=== PATIENT | male | born 2000 ===

== ENCOUNTER 2018-10-11 19:44 | Day surgery (SDC) | payer OTHER ==
[~2018-10-11] VITALS: Ht 170.2 cm; Wt 67.6 kg
[2018-10-11 20:08] VITALS: BP 126/62; PULSE 71; TEMP 98
[2018-10-11] MEDS ORDERED: REMERON 15M15 MG/TA1 PO (20:57)
[2018-10-11] MEDS ORDERED: DESYREL DIVIDO300 MG PO (20:59)
[2018-10-12] VITALS (11 sets, daily range): BP systolic 98–118; BP diastolic 51–73; PULSE 65–83; TEMP 97.7–98.1
--- NOTE | 2018-10-12 01:22 | NUR ---
Patient to the unit via EMS at 1999. IV noted to left forearm. States pain is 5/10 to right side of his flank area. Orders received from Scottie. NPO at midnight. IVF started to left forearm. Reassessed pain to 3/10, and scheduled Tordol given. Patient resting with eyes closed in bed at this time. Educated when arrived about urinating in the urinal, so staff can strain his urine. Will continue to monitor.
--- NOTE | 2018-10-12 05:01 | NUR ---
Patient has rested well throughout the night. No complaints of pain noted. Will continue to monitor.
--- NOTE | 2018-10-12 06:45 | NUR ---
appears to be sleeping, bedside shift report received from JAIME Gregg
--- NOTE | 2018-10-12 06:59 | NUR ---
Report given to JAIME Aguilar.
--- NOTE | 2018-10-12 07:47 | NUR ---
awake and full assessment completed, see interventions for further info, consent signed, medicated with scheduled toradol for c/os pain 10/01, denies other needs
--- NOTE | 2018-10-12 09:20 | NUR ---
assisted him with getting ready for surgery and to surgery per bed, denies needs
--- NOTE | 2018-10-12 11:40 | NUR ---
remains in surgery
--- NOTE | 2018-10-12 12:15 | NUR ---
returned to room per bed from PACU, awake and alert, VS obtained and then assisted him up to bathroom and he voided qs bright red urine, then back to bed, IV infusing per gravity, provided water, asking about eating and will instructed after he has water and tolerates, verbalizes understanding
--- NOTE | 2018-10-12 12:30 | NUR ---
assisted up to bathroom again and was able to void
--- NOTE | 2018-10-12 12:45 | NUR ---
c/o pain and medicated with percocet 5mg 2 tabs, taking water and tolerates well, instructed on ordering regular food and verbalizes understanding
--- NOTE | 2018-10-12 13:30 | NUR ---
resting in bed, has ordered regular food, states is continue to have dull aching pain in left flank area
--- NOTE | 2018-10-12 13:31 | NUR ---
BLANCA met with the patient to discuss discharge plan. The patient lives in the [facility] on [address]. He reports independence with ADLs and does not use any DME. The patient receives primary care at the [facility] on [address] and he receives his medications at the [facility]. He reports no difficulties obtaining his meds. The patient plans to return home upon discharge. No additional needs at this time.
--- NOTE | 2018-10-12 14:00 | NUR ---
sitting up in bed and has had something to eat and tolerated well
--- NOTE | 2018-10-12 15:00 | NUR ---
states he feels like he is ready to go and his ride is on his way, IV to INT and will get up to bathroom independently and then get dressed
--- NOTE | 2018-10-12 15:25 | NUR ---
discharge instructions given to patient, verbalizes understanding
== END 2018-10-12 15:35 | disposition home or self-care (01) ==
LOC: SURG 19:44 → SDCO 19:44 → SURG 10-12 15:35
DX: R10.9 Unspecified abdominal pain (principal); Z87.442 Personal history of urinary calculi
CPT/HCPCS: C1769; C2617; G0378; G0379; J0690; J1100; J1885; J2270; J2405; J2704; J3010; J7030; J7120; Q9967